=== PATIENT | male | born 1960 | race Caucasian/White ===

== ENCOUNTER 2017-06-20 23:45 | Emergency (ER) | payer MEDICARE, MEDICAID ==
[~2017-06-20] VITALS: Ht 177.8 cm; Wt 88.5 kg
[~2017-06-20 23:45] MED LIST: ERYTOPOI LEFT EYE; VIGA LEFT EYE
[2017-06-20 23:50] VITALS: Ht 177.8 cm; Wt 88.5 kg
[2017-06-20] MEDS ORDERED: SOD CHLORIDE 0.9% 500 ML IV STA (23:59)
[2017-06-21] MEDS ORDERED: OMEP20CA16 PO (01:15)
[2017-06-21] MEDS ORDERED: CALC667C PO (01:15)
--- NOTE | 2017-06-21 01:18 | RADRPT ---
PROCEDURE: Chest. CLINICAL INDICATION: Chest pain. TECHNIQUE: Single frontal view of the chest was obtained. COMPARISON: 01/31/2015. FINDINGS: The cardiac silhouette is magnified. The aortic arch is unremarkable. There is no focal consolidat ion, vascular congestion or pleural effusion. There is no pneumothorax. IMPRESSION: No evidence for active cardiopulmonary disease. .Christoph Crowe MD, Date Time Electronically viewed and signed by .Christoph Crowe MD, on 06/21/2017 01:17 .T/
--- NOTE | 2017-06-21 01:18 | RADRPT ---
PROCEDURE: CT head, without contrast. CLINICAL INDICATION: Headache. TECHNIQUE: Noncontrast CT examination of the head, with axial, sagittal and coronal reformatted im ages. Automated dose exposure control was employed. CTDI: 42.93 and DLP: 810.25 COMPARISON: None. FINDINGS: No acute hemorrhage. Subarachnoid spaces are substantially preserved and symmetric. Ventricles ar e unremarkable. No mass effect. Schulte-white matter distinction is preserved without evident decreased attenuation t o suggest acute or recent infarct. Partial opacification of ethmoid air cells. Sinuses and osseous structures are otherwise unremarkable. IMPRESSION: Partial opacification of ethmoid air cells, and otherwise, no acute process in the head. RPTAT: [facility] Physician Marcus Date Time Electronically viewed and signed by Physician Marcus on 06/21/2017 01:18 RS/
[2017-06-21 01:28] LABS: BASOPHILS % 0.4 % (0.0-2.0); EOSINOPHILS # 0.1 10^3/ul (0.0-0.5); EOSINOPHILS % 2.6 % (0.0-7.0); HEMATOCRIT 33.5 % (42.0-52.0); HEMOGLOBIN 11.2 g/dl (14.0-18.0); LYMPHOCYTES # 1.3 10^3/ul (0.8-2.9); LYMPHOCYTES % 25.1 % (15.0-51.0); MEAN CORPUSCULAR HEMOGLOBIN 33.5 pg (29.0-33.0); MEAN CORPUSCULAR HGB CONC 33.4 g/dl (32.0-37.0); MEAN CORPUSCULAR VOLUME 100.3 fl (82.0-101.0); MEAN PLATELET VOLUME 9.6 fl (7.4-10.4); MONOCYTE # 0.4 10^3/ul (0.3-0.9); MONOCYTES % 8.2 % (0.0-11.0); NEUTROPHILS % 63.5 % (39.0-77.0); PLATELET COUNT 196 10^3/UL (140-415); RED BLOOD COUNT 3.34 10^6/ul (4.70-6.10); RED CELL DISTRIBUTION WIDTH 13.2 % (11.5-14.5)
[2017-06-21 01:43] LABS: INR 1.03; PROTIME 13.5 Sec (12.2-14.2); PT RATIO 1.1
[2017-06-21 01:44] LABS: PARTIAL THROMBOPLASTIN TIME 29.7 Sec (25.0-35.0)
[2017-06-21 01:45] LABS: CALCIUM 9.3 mg/dl (8.4-10.2); CREATININE 7.93 mg/dl (0.61-1.24); POTASSIUM 5.3 mmol/L (3.5-5.1)
[2017-06-21 01:57] LABS: TROPONIN-I 0.016 ng/ml (0.00-0.12)
[2017-06-21 04:00] VITALS: BP 166/100; PULSE 70; RESP 14; TEMP 98
--- NOTE | 2017-06-21 05:10 | ERD ---
ER Documentation Chief Complaint Date/Time DATE: 06/21/17 TIME: 05:09 Chief Complaint INCREASE LOSS OF VISION TO RIGHT EYE, SINCE TUESDAY. HX OF DM. HPI Is a 56-year-old male has difficulty with vision to his right eye since Tuesday. Patient has history of diabetes mellitus. He has known diabetic retinopathy in the left eye. Denies of the right is getting worse. He says blood sugars have been under poor control over the past few years. No nausea no vomiting no chills. No focal neurological complaints. No upper or lower extremity weakness. No other current complaints. ROS All systems reviewed and are negative except as per history of present illness. Medications Home Meds Reported Medications Calcium Acetate* (Calcium Acetate*) 667 Mg Capsule, 1334 MG PO WITH MEALS, #60 CAP 06/21/17 Omeprazole* (Omeprazole*) 20 Mg Capsule.dr, 20 MG PO DAILY, #30 CAP 06/21/17 Discontinued Scripts Erythromycin* (Erythromycin* Ophthalmic) 1 Applic Oint, 1 APPLIC LEFT EYE QID, # 1 TUB Prov:KRISTOPHER GODINEZ DO 05/26/16 Moxifloxacin Hcl* (Vigamox*) 0.5% - 3 Ml Opht, 1 DROP LEFT EYE TID for 7 Days, EA Prov:KRISTOPHER GODINEZ DO 05/26/16 Allergies Allergies: Coded Allergies: No Known Drug Allergies (Unverified Allergy, Unknown, 06/21/17) PMhx/Soc History of Surgery: Yes (dialysis access,[id number]-[id number]-5Hrr ago, both eyes sx- cataract/retina-one yr.ago) Anesthesia Reaction: No Hx Neurological Disorder: No Hx Respiratory Disorders: No Hx Cardiac Disorders: Yes (HTN) Hx Psychiatric Problems: No Hx Miscellaneous Medical Probl: Yes (DM, ESRD) Hx Alcohol Use: Yes (12 [employer] /WK) Hx Substance Use: No Hx Tobacco Use: No Smoking Status: Never smoker Physical Exam Vitals Vital Signs Date Time Temp Pulse Resp B/P Pulse Ox O2 Delivery O2 Flow Rate FiO2 06/21/17 00:50 98.3 64 15 155/85 100 Room Air 06/20/17 23:50 98.3 71 18 157/79 98 Physical Exam Const: [] Head: Atraumatic Eyes: Normal Conjunctiva ENT: Normal External Ears, Nose and Mouth. Neck: Full range of motion..~ No meningismus. Resp: Clear to auscultation bilaterally Cardio: Regular rate and rhythm, no murmurs Abd: Soft, non tender, non distended. Normal bowel sounds Skin: No petechiae or rashes Back: No midline or flank tenderness Ext: No cyanosis, or edema Neur: Awake and alert Psych: Normal Mood and Affect Result Diagram: 06/21/17 0115 06/21/17 0115 Results 24 hrs Laboratory Tests Test 06/20/17 23:52 06/21/17 01:15 Bedside Glucose 159mg/dL White Blood Count 5.010^3/ul Red Blood Count 3.3410^6/ul Hemoglobin 11.2g/dl Hematocrit 33.5% Mean Corpuscular Volume 100.3fl Mean Corpuscular Hemoglobin 33.5pg Mean Corpuscular Hemoglobin Concent 33.4g/dl Red Cell Distribution Width 13.2% Platelet Count 86220^3/UL Mean Platelet Volume 9.6fl Neutrophils % 63.5% Lymphocytes % 25.1% Monocytes % 8.2% Eosinophils % 2.6% Basophils % 0.4% Nucleated Red Blood Cells % 0.0/100WBC Neutrophils # (Manual) 3.210^3/ul Lymphocytes # 1.310^3/ul Monocytes # 0.410^3/ul Eosinophils # 0.110^3/ul Basophils # 0.010^3/ul Nucleated Red Blood Cells # 0.010^3/ul Prothrombin Time 13.5Sec Prothrombin Time Ratio 1.1 INR International Normalized Ratio 1.03 Activated Partial Thromboplast Time 29.7Sec Sodium Level 140mmol/L Potassium Level 5.3mmol/L Chloride Level 92mmol/L Carbon Dioxide Level 38mmol/L Anion Gap 15 Blood Urea Nitrogen 23mg/dl Creatinine 7.93mg/dl Glucose Level 121mg/dl Calcium Level 9.3mg/dl Troponin I 0.016ng/ml Current Medications Medications (Trade) Dose Ordered Sig/Demetra Route PRN Reason Start Time Stop Time Status Last Admin Dose Admin Sodium Chloride (NS) 500 ml @ 500 mls/hr Q1H STAT IV 06/20/17 23:59 06/21/17 00:58 DC 06/21/17 03:34 Procedures/MDM EKG: Rate/Rhythm: [Normal Sinus Rhythm] QRS, ST, T-waves: [No changes consistent w/ acute ischemia] Impression: [No evidence of ischemia or arrhythmia] Chest X-ray 1V Interpreted by me: Soft Tissue: No acute abnormalities Bones: No acute abnormalities Mediastinum/Cardiac Silhouette/Lungs: [No acute abnormalities] Medical decision-makin-year-old male is Katrin with diabetic retinopathy. Visual acuity is 20 out of 60 bilaterally. His nonfocal neurological. At this point clinically stable for outpatient management. I recommended tighter blood glucose control and to follow-up with primary care physician or ophthalmology referral. Departure Diagnosis: Primary Impression: Retinopathy due to secondary diabetes mellitus Condition: Stable ERICA CAMPOS Jun 21, 2017 05:10
== END 2017-06-21 05:51 | disposition home or self-care (01) ==
LOC: E/R 23:45
DX: E11.319 Type 2 diabetes mellitus with unspecified diabetic retinopathy without macular edema (principal); I12.0 Hypertensive chronic kidney disease with stage 5 chronic kidney disease or end stage renal disease; N18.6 End stage renal disease; R51 Headache
CPT/HCPCS: 36415; 70450; 71010; 80048; 82962; 84484; 85025; 85610; 85730; 99285; J7040

== ENCOUNTER 2017-10-09 16:07 | Emergency (ER) | END 2017-10-09 19:00 | disposition home or self-care (01) ==